=== PATIENT | male | born 1990 | race Hispanic/Latino ===

== ENCOUNTER 2021-04-27 17:43 | Emergency (ER) | payer SELFPAY ==
--- NOTE | 2021-04-27 18:32 | RAD REPORT ---
EXAM DESCRIPTION: RAD - Hand Right 3 View - 04/27/2021 6:22 pm CLINICAL HISTORY: DEFORMITY COMPARISON: No comparisons FINDINGS: Mildly comminuted fracture of the second distal phalangeal tuft. There is less than a mm o f distraction the fragments. IMPRESSION: Second distal phalangeal tuft fracture.
[2021-04-27] MEDS ORDERED: CEFAZOLIN SODIUM 1 GM/VIAL ONE (19:41)
[2021-04-27] MEDS ORDERED: WATER FOR INJ,STERILE 10 ML ONE (19:42)
[2021-04-27] MEDS ORDERED: BUPIVACAINE 0.5% PF 10 ML VIAL ONE (20:14)
--- NOTE | 2021-04-27 21:49 | ER ---
Nurse's Notes [facility] Name: Tobias Rodgers Age: 30 yrs Sex: Male : 1990 Arrival Date: 04/27/2021 Time: 17:46 Bed 9 Private MD: Diagnosis: Finger laceration;Right second tuft fracture open Presentation: 04/27 18:00 Chief complaint: Patient states: picking up a large solid iron block or plate that tw2 weighs about 75 to 100 pounds earlier today. it happened about 2 pm. i was wearing gloves. but its like my finger had a blow out out of the side. Coronavirus screen: At this time, the client does not indicate any symptoms associated with coronavirus-19. Ebola Screen: Patient denies travel to an Ebola-affected area in the 21 days before illness onset. Initial Sepsis Screen: Does the patient meet any 2 criteria? No. Patient's initial sepsis screen is negative. Does the patient have a suspected source of infection? No. Patient's initial sepsis screen is negative. Risk Assessment: Do you want to hurt yourself or someone else? Patient reports no desire to harm self or others. Onset of symptoms was April 27, 2021. 18:00 Method Of Arrival: Ambulatory tw2 18:00 Acuity: GLYNN 3 tw2 18:03 Chief complaint:. tw2 Triage Assessment: 18:05 General: Appears in no apparent distress. uncomfortable, Behavior is calm, cooperative, tw2 appropriate for age. Pain: Complains of pain in palmar aspect of distal phalanx of right index finger. Musculoskeletal: Range of motion: limited in DIP of right index finger. Injury Description: Crush injury sustained to palmar aspect of distal phalanx of right index finger. Historical: - Allergies: 18:04 No Known Allergies; tw2 - Home Meds: 18:04 None [Active]; tw2 - PMHx: 18:04 None; tw2 - PSHx: 18:04 None; tw2 - Immunization history:: Last tetanus immunization: < 5 years ago. - Social history:: Smoking status: Patient denies any tobacco usage or history of. Screenin:25 Abuse screen: Denies threats or abuse. Denies injuries from another. Nutritional ld1 screening: No deficits noted. Tuberculosis screening: No symptoms or risk factors identified. Fall Risk None identified. Assessment: 19:25 General: Appears in no apparent distress. uncomfortable, Behavior is calm, cooperative, ld1 appropriate for age. Pain: Complains of pain in right index fingernail Pain does not radiate. Pain currently is 8 out of 10 on a pain scale. Quality of pain is described as throbbing, Pain began suddenly, Is continuous. Neuro: Level of Consciousness is awake, alert, obeys commands, Oriented to person, place, time, situation, Appropriate for age. Cardiovascular: Capillary refill < 3 seconds Patient's skin is warm and dry. Respiratory: Airway is patent Respiratory effort is even, unlabored, Respiratory pattern is regular, symmetrical. GI: Abdomen is flat, non-distended. : No signs and/or symptoms were reported regarding the genitourinary system. EENT: No signs and/or symptoms were reported regarding the EENT system. Derm: No signs and/or symptoms reported regarding the dermatologic system. Musculoskeletal: No signs and/or symptoms reported regarding the musculoskeletal system. Injury Description: Crush injury sustained to dorsal aspect of distal phalanx of right index finger. 20:34 Reassessment: Patient appears in no apparent distress at this time. Patient is alert, ld1 oriented x 3, equal unlabored respirations, skin warm/dry/pink. Vital Signs: 18:00 BP 126 / 91; Pulse 73; Resp 17; Temp 97.6(TE); Pulse Ox 99% on R/A; Weight 97.52 kg; tw2 Height 6 ft. 0 in. (182.88 cm); Pain 8/10; 19:25 BP 132 / 88; Pulse 76; Resp 18; Pulse Ox 99% on R/A; Pain 8/10; ld1 20:34 BP 129 / 84; Pulse 75; Resp 18; Pulse Ox 100% on R/A; ld1 18:00 Body Mass Index 29.16 (97.52 kg, 182.88 cm) tw2 ED Course: 17:46 Patient arrived in ED. am2 18:03 Triage completed. tw2 18:03 Arm band placed on. tw2 18:22 Hand Right 3 View XRAY In Process Unspecified. EDMS 19:20 Andrey Manzo PA is PHCP. jmm 19:20 Victoriano Hernandes MD is Attending Physician. [facility] 19:21 Attending Physician role handed off by Victoriano Hernandes MD [facility] 19:21 Shabbir Bartholomew MD is Attending Physician. [facility] 19:25 Patient has correct armband on for positive identification. Placed in gown. Bed in low ld1 position. Call light in reach. Side rails up X2. Pulse ox on. NIBP on. Door closed. Noise minimized. Warm blanket given. 19:25 No provider procedures requiring assistance completed. ld1 21:48 Flex Lin MD is Referral Physician. [facility] 21:54 Patient did not have IV access during this emergency room visit. ld1 Administered Medications: 19:25 Drug: Ancef (cefazolin) 1 grams Route: IM; Site: right gluteus; ld1 19:25 Follow up: Response: No adverse reaction ld1 20:04 Drug: Marcaine (bupivacaine) (0.5 %) 10 ml {Note: Administered by THAD Rivera..} ld1 Volume: 10 ml; Route: Infiltration; 20:05 Follow up: Response: No adverse reaction ld1 Outcome: 21:49 Discharge ordered by . [facility] 21:54 Discharged to home ambulatory. ld1 21:54 Condition: stable 21:54 Discharge instructions given to patient, Instructed on discharge instructions, follow up and referral plans. medication usage, Demonstrated understanding of instructions, follow-up care, medications. 21:54 Patient left the ED. ld1 Signatures: Dispatcher [employer] EDMS Shabbir Bartholomew MD MD cha Mickail, Joel, PA PA [facility] Sully Bryant RN RN tw2 Pita Baeza am2 Sumi Tillman, RN RN ld1 Corrections: (The following items were deleted from the chart) 18:04 18:00 Chief complaint: Patient states: picking up a large solid iron block or plate tw2 that weighs about 75 to 100 pounds earlier today. it happened about 2 pm. tw2
--- NOTE | 2021-04-27 21:49 | EDPHYS ---
Physician Documentation [facility] Name: Tobias Rodgers Age: 30 yrs Sex: Male : 1990 Arrival Date: 04/27/2021 Time: 17:46 Bed 9 Private MD: ED Physician Shabbir Bartholomew HPI: 04/27 18:07 This 30 yrs old Male presents to ER via Ambulatory with complaints of Finger jmm Injury. 18:07 The patient or guardian reports injury, pain. Onset: The symptoms/episode jmm began/occurred acutely, just prior to arrival. Modifying factors: The symptoms are alleviated by nothing, the symptoms are aggravated by nothing. Associated signs and symptoms: Pertinent negatives: fever, numbness distally, tingling distally. Patient states that a large metal plate fell on his finger.. Historical: - Allergies: 18:04 No Known Allergies; tw2 - Home Meds: 18:04 None [Active]; tw2 - PMHx: 18:04 None; tw2 - PSHx: 18:04 None; tw2 - Immunization history:: Last tetanus immunization: < 5 years ago. - Social history:: Smoking status: Patient denies any tobacco usage or history of. ROS: 18:07 Constitutional: Negative for fever, chills, and weight loss, Cardiovascular: Negative jmm for chest pain, palpitations, and edema, Respiratory: Negative for shortness of breath, cough, wheezing, and pleuritic chest pain. 18:07 MS/extremity: Positive for injury or acute deformity, pain. 18:07 All other systems are negative. Exam: 18:07 Constitutional: This is a well developed, well nourished patient who is awake, alert, jmm and in no acute distress. Head/Face: atraumatic. Eyes: EOMI, no conjunctival erythema appreciated ENT: Moist Mucus Membranes Neck: Trachea midline, Supple Chest/axilla: Normal chest wall appearance and motion. Cardiovascular: Regular rate and rhythm. No edema appreciated Respiratory: Normal respirations, no respiratory distress appreciated Abdomen/GI: Non distended, soft Back: Normal ROM 18:07 Musculoskeletal/extremity: Full range of motion appreciated to the right DIP, less than 2-second distal capillary refill, neurovascular intact. 18:07 Skin: 2 cm laceration noted to the right index finger. 18:07 Neuro: Orientation: is normal, Mentation: is normal, Memory: is normal. 18:07 Psych: Behavior/mood is pleasant, cooperative. Vital Signs: 18:00 BP 126 / 91; Pulse 73; Resp 17; Temp 97.6(TE); Pulse Ox 99% on R/A; Weight 97.52 kg; tw2 Height 6 ft. 0 in. (182.88 cm); Pain 8/10; 19:25 BP 132 / 88; Pulse 76; Resp 18; Pulse Ox 99% on R/A; Pain 8/10; ld1 20:34 BP 129 / 84; Pulse 75; Resp 18; Pulse Ox 100% on R/A; ld1 18:00 Body Mass Index 29.16 (97.52 kg, 182.88 cm) tw2 Laceration: 21:43 Wound Repair of 2cm ( 0.8in ) subcutaneous laceration to palmar aspect of distal jmm phalanx of right index finger. Distal neuro/vascular/tendon intact. Anesthesia: Local anesthetic administered with 3 mls of 0.5% marcaine. Wound prep: Simple cleansing with betadine by me. Skin closed with 5 5-0 Prolene using simple sutures and sterile technique. Patient tolerated well. MDM: 19:34 Patient medically screened. [facility] 21:43 Data reviewed: vital signs, nurses notes. Counseling: I had a detailed discussion with garret the patient and/or guardian regarding: the historical points, exam findings, and any diagnostic results supporting the discharge/admit diagnosis, radiology results, the need for outpatient follow up, to return to the emergency department if symptoms worsen or persist or if there are any questions or concerns that arise at home. 04/27 18:07 Order name: Hand Right 3 View XRAY; Complete Time: 19:26 iw 04/27 21:29 Order name: Finger Splint; Complete Time: 21:42 [facility] Administered Medications: 19:25 Drug: Ancef (cefazolin) 1 grams Route: IM; Site: right gluteus; ld1 19:25 Follow up: Response: No adverse reaction ld1 20:04 Drug: Marcaine (bupivacaine) (0.5 %) 10 ml {Note: Administered by PA. Miguel.} ld1 Volume: 10 ml; Route: Infiltration; 20:05 Follow up: Response: No adverse reaction ld1 Disposition: 04/28 04:51 Co-signature as Attending Physician, Shabbir Bartholomew MD I agree with the assessment and teo plan of care. Disposition Summary: 04/27/21 21:49 Discharge Ordered Location: Home [facility] Condition: Stable jm Diagnosis - Finger laceration jmm - Right second tuft fracture open jmm Followup: [facility] - With: Flex Lin MD - When: 5 - 6 days - Reason: Recheck today's complaints, Continuance of care, Re-evaluation by your physician Discharge Instructions: - Discharge Summary Sheet jmm - Finger Fracture, Adult jmm - Laceration Care, Adult jm Forms: - Medication Reconciliation Form [facility] - Thank You Letter [facility] - Antibiotic Education [facility] - Prescription Opioid Use [facility] - Work release form bb Prescriptions: - Cephalexin 500 mg Oral Capsule - take 1 capsule by ORAL route every 6 hours for 10 days; 40 capsule; Refills: 0, jmm Product Selection Permitted Signatures: Dispatcher [employer] EDShabbir Matamoros MD MD cha Mickail, Joel, PA PA jmm Williams, Irene, RN RN Sully Cox RN RN tw2 Sumi Tillman RN RN ld1
[2021-04-27 22:01] VITALS: TEMP 97.6
[2021-04-27 22:06] VITALS: BP 129/84; O2SAT 100
== END 2021-04-27 21:54 | disposition home or self-care (01) ==
LOC: ER 17:43
PROC: 2W3JX1Z Immobilization of Right Finger using Splint (ICD-10-PCS; principal; 2021-04-27)
PROC: 0JQJ0ZZ Repair Right Hand Subcutaneous Tissue and Fascia, Open Approach (ICD-10-PCS; 2021-04-27)
DX: S62.632B Displaced fracture of distal phalanx of right middle finger, initial encounter for open fracture (principal); W23.0XXA Caught, crushed, jammed, or pinched between moving objects, initial encounter
CPT/HCPCS: 96372; 99283; J0690

== ENCOUNTER 2021-05-04 01:58 | Emergency (ER) | payer SELFPAY ==
--- NOTE | 2021-05-04 03:15 | EDPHYS ---
Physician Documentation [facility] Name: Tobias Rodgers Age: 30 yrs Sex: Male : 1990 Arrival Date: 05/04/2021 Time: 02:02 Bed 12 Private MD: Shabbir Salinas HPI: 05/04 03:09 This 30 yrs old Male presents to ER via Ambulatory with complaints of Suture teo Removal - Possible. 03:09 The patient has sutures on the palmar aspect of distal phalanx of right index finger teo and right index fingernail. Previous treatment: The patient was initially treated 6 day(s) ago. Sutures/lesly progress: The patient's wound displays redness at site. The patient has not experienced similar symptoms in the past. Historical: - Allergies: 02:22 No Known Allergies; wg - Home Meds: 02:22 None [Active]; wg - PMHx: 02:22 None; wg - Immunization history:: Adult Immunizations up to date. - Social history:: Smoking status: Patient reports the use of cigarette tobacco products, smokes one pack cigarettes per day. Patient uses alcohol, occasionally. Patient/guardian denies using street drugs, IV drugs. - Family history:: not pertinent. ROS: 03:09 Constitutional: Negative for fever, chills, and weight loss, Eyes: Negative for injury, teo pain, redness, and discharge, ENT: Negative for injury, pain, and discharge, Neck: Negative for injury, pain, and swelling, Cardiovascular: Negative for chest pain, palpitations, and edema, Respiratory: Negative for shortness of breath, cough, wheezing, and pleuritic chest pain, Abdomen/GI: Negative for abdominal pain, nausea, vomiting, diarrhea, and constipation, Back: Negative for injury and pain, : Negative for injury, bleeding, discharge, and swelling, Skin: Negative for injury, rash, and discoloration, Neuro: Negative for headache, weakness, numbness, tingling, and seizure, Psych: Negative for depression, anxiety, suicide ideation, homicidal ideation, and hallucinations, Allergy/Immunology: Negative for hives, rash, and allergies, Endocrine: Negative for neck swelling, polydipsia, polyuria, polyphagia, and marked weight changes, Hematologic/Lymphatic: Negative for swollen nodes, abnormal bleeding, and unusual bruising. 03:09 MS/extremity: Positive for laceration, pain, of the palmar aspect of distal phalanx of right index finger and right index fingernail. Exam: 03:09 Constitutional: This is a well developed, well nourished patient who is awake, alert, teo and in no acute distress. Head/Face: Normocephalic, atraumatic. Eyes: Pupils equal round and reactive to light, extra-ocular motions intact. Lids and lashes normal. Conjunctiva and sclera are non-icteric and not injected. Cornea within normal limits. Periorbital areas with no swelling, redness, or edema. ENT: Nares patent. No nasal discharge, no septal abnormalities noted. Tympanic membranes are normal and external auditory canals are clear. Oropharynx with no redness, swelling, or masses, exudates, or evidence of obstruction, uvula midline. Mucous membranes moist. Neck: Trachea midline, no thyromegaly or masses palpated, and no cervical lymphadenopathy. Supple, full range of motion without nuchal rigidity, or vertebral point tenderness. No Meningismus. Chest/axilla: Normal chest wall appearance and motion. Nontender with no deformity. No lesions are appreciated. Cardiovascular: Regular rate and rhythm with a normal S1 and S2. No gallops, murmurs, or rubs. Normal PMI, no JVD. No pulse deficits. Respiratory: Lungs have equal breath sounds bilaterally, clear to auscultation and percussion. No rales, rhonchi or wheezes noted. No increased work of breathing, no retractions or nasal flaring. Abdomen/GI: Soft, non-tender, with normal bowel sounds. No distension or tympany. No guarding or rebound. No evidence of tenderness throughout. Back: No spinal tenderness. No costovertebral tenderness. Full range of motion. Male : Normal genitalia with no discharge or lesions. Skin: Warm, dry with normal turgor. Normal color with no rashes, no lesions, and no evidence of cellulitis. Neuro: Awake and alert, GCS 15, oriented to person, place, time, and situation. Cranial nerves II-XII grossly intact. Motor strength 5/5 in all extremities. Sensory grossly intact. Cerebellar exam normal. Normal gait. Psych: Awake, alert, with orientation to person, place and time. Behavior, mood, and affect are within normal limits. 03:09 Musculoskeletal/extremity: ROM: intact in all extremities, full active range of motion, full passive range of motion, Circulation is intact in all extremities. Sensation intact. Compartment Syndrome exam of affected extremity: is normal. DVT Exam: no swelling, negative Homans' sign noted on exam, no appreciated bluish discoloration, no erythema, no increased warmth, pain, tenderness. Vital Signs: 02:18 BP 125 / 78; Pulse 72; Resp 18; Temp 98.4; Pulse Ox 99% on R/A; Weight 97.52 kg; Height wg 6 ft. (182.88 cm); Pain 0/10; 02:18 Body Mass Index 29.16 (97.52 kg, 182.88 cm) wg Procedures: 03:12 Suture/Staple removal: Removed 6 sutures, from palmar aspect of distal phalanx of right teo index finger and right index fingernail, site appears reddened. MDM: 02:38 Patient medically screened. [facility] 03:12 Data reviewed: vital signs, nurses notes. 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 rate is 72 beats/min, rhythm is regular, Pulse oximetry: on room air is 99 %. Counseling: I had a detailed discussion with the patient and/or guardian regarding: the historical points, exam findings, and any diagnostic results supporting the discharge/admit diagnosis, the need for outpatient follow up, for definitive care, a hand specialist. 05/04 03:09 Order name: Wound dressing; Complete Time: 03:09 teo Administered Medications: 03:09 Drug: Neosporin ([id number]) Ointment 1 application Route: Topical; ch4 Site: affected area; 03:10 Drug: KeFLEX (cephalexin) 500 mg Route: PO; ch4 Disposition Summary: 05/04/21 03:14 Discharge Ordered Location: Home teo Problem: new teo Symptoms: have improved teo Condition: Stable teo Diagnosis - Encounter for removal of sutures teo - Sebaceous cyst teo Followup: teo - With: Private Physician - When: 2 - 3 days - Reason: Recheck today's complaints, Continuance of care, Re-evaluation by your physician Followup: teo - With: Flex Lin MD - When: 2 - 3 days - Reason: Recheck today's complaints, Continuance of care, Re-evaluation by your physician Followup: teo - With: Nato Loyola MD - When: 2 - 3 days - Reason: Recheck today's complaints, Continuance of care, Re-evaluation by your physician Discharge Instructions: - Discharge Summary Sheet teo - Ganglion Cyst teo - Suture Removal, Care After teo - Wound Closure Removal, Care After teo - Epidermal Cyst teo Forms: - Medication Reconciliation Form teo - Thank You Letter teo - Antibiotic Education teo - Prescription Opioid Use [facility] Prescriptions: - Cephalexin 500 mg Oral Capsule - take 1 capsule by ORAL route every 6 hours for 5 days; 20 capsule; Refills: 0, teo Product Selection Permitted Signatures: Shabbir Bartholomew MD MD cha Herman, Christina, RN RN Artemio Alcala RN abbe
--- NOTE | 2021-05-04 03:15 | ER ---
Nurse's Notes [facility] Name: Tobias Rodgers Age: 30 yrs Sex: Male : 1990 Arrival Date: 05/04/2021 Time: 02:02 Bed 12 Private MD: Diagnosis: Encounter for removal of sutures;Sebaceous cyst Presentation: 05/04 02:18 Coronavirus screen: Vaccine status: Patient reports being unvaccinated. At this time, wg the client does not indicate any symptoms associated with coronavirus-19. Ebola Screen: Patient negative for fever greater than or equal to 101.5 degrees Fahrenheit, and additional compatible Ebola Virus Disease symptoms Patient denies exposure to infectious person. Patient denies travel to an Ebola-affected area in the 21 days before illness onset. No symptoms or risks identified at this time. Initial Sepsis Screen: Does the patient meet any 2 criteria? No. Patient's initial sepsis screen is negative. Does the patient have a suspected source of infection? No. Patient's initial sepsis screen is negative. Risk Assessment: Do you want to hurt yourself or someone else? Patient reports no desire to harm self or others. Onset of symptoms was May 01, 2021. 02:18 Method Of Arrival: Ambulatory 02:18 Acuity: GLYNN 5 wg Triage Assessment: 02:22 General: Appears in no apparent distress. comfortable, well groomed, Behavior is calm, wg cooperative, appropriate for age. Pain: Denies pain. EENT: No deficits noted. Neuro: No deficits noted. Cardiovascular: No deficits noted. Respiratory: No deficits noted. GI: No deficits noted. : No deficits noted. Derm: 4 stitches in right index finger. Historical: - Allergies: 02:22 No Known Allergies; wg - Home Meds: 02:22 None [Active]; wg - PMHx: 02:22 None; wg - Immunization history:: Adult Immunizations up to date. - Social history:: Smoking status: Patient reports the use of cigarette tobacco products, smokes one pack cigarettes per day. Patient uses alcohol, occasionally. Patient/guardian denies using street drugs, IV drugs. - Family history:: not pertinent. Screenin:02 Abuse screen: Denies threats or abuse. Nutritional screening: No deficits noted. ch4 Tuberculosis screening: No symptoms or risk factors identified. Fall Risk None identified. Assessment: 03:01 General: Appears in no apparent distress. comfortable. Pain: Denies pain. Neuro: No ch4 deficits noted. Cardiovascular: No deficits noted. Respiratory: No deficits noted. GI: No deficits noted. : No deficits noted. EENT: No deficits noted. Derm: Skin is pink, warm \T\ dry. Skin temperature is warm. Musculoskeletal: No deficits noted. 03:13 Reassessment: No changes from previously documented assessment. Patient is alert, ch4 oriented x 3, equal unlabored respirations, skin warm/dry/pink. Vital Signs: 02:18 BP 125 / 78; Pulse 72; Resp 18; Temp 98.4; Pulse Ox 99% on R/A; Weight 97.52 kg; Height wg 6 ft. (182.88 cm); Pain 0/10; 02:18 Body Mass Index 29.16 (97.52 kg, 182.88 cm) wg ED Course: 02:02 Patient arrived in ED. 02:22 Triage completed. wg 02:22 Arm band placed on left wrist. wg 02:24 Artemio Newton, RN is Primary Nurse. wg 02:38 Shabbir Bartholomew MD is Attending Physician. teo 03:02 Patient has correct armband on for positive identification. ch4 03:02 suture removal. Dressings: Band aid x 1 right hand. Removal of Removed sutures from ch4 right hand Suture site is well healed Patient tolerated well. Wound care: Patient tolerated well. 03:14 Flex Lin MD is Referral Physician. [facility] 03:15 Referral Physician role handed off by Flex Lin MD [facility] 03:15 Nato Loyola MD is Referral Physician. [facility] Administered Medications: 03:09 Drug: Neosporin (hiwzekzw-zuytofynog-cjbzviznz) Ointment 1 application Route: Topical; ch4 Site: affected area; 03:10 Drug: KeFLEX (cephalexin) 500 mg Route: PO; ch4 Outcome: 03:14 Discharge ordered by . [facility] 03:21 Patient left the ED. ch4 Signatures: Shabbir Bartholomew MD MD cha Marsh, Wendy Jacquelin Shin RN RN [facility] Artemio Newton RN Corrections: (The following items were deleted from the chart) 02:42 02:18 Chief complaint: Patient states: Pt was seen here on the and had stitches on ch4 his right index fingertip. Pt states he needs the sutures removed and to see the physician to sign a work form so he can go back to work. wg
[2021-05-04] MEDS ORDERED: LIDOCAINE 1% W/EPI 1:100,000 MDV 50 ML VIAL ONE (03:17)
[2021-05-04] MEDS ORDERED: CEPHALEXIN 250 MG CAP ONE (03:34)
[2021-05-04 03:37] VITALS: BP 125/78; TEMP 98.4; O2SAT 99
== END 2021-05-04 03:21 | disposition home or self-care (01) ==
LOC: ER 01:58
DX: Z48.02 Encounter for removal of sutures (principal); L72.3 Sebaceous cyst; F17.210 Nicotine dependence, cigarettes, uncomplicated
CPT/HCPCS: 99283

== ENCOUNTER 2021-09-29 19:50 | Emergency (ER) | payer SELFPAY ==
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
--- NOTE | 2021-09-29 21:57 | EDPHYS ---
Physician Documentation [facility] Name: Tobias Rodgers Age: 31 yrs Sex: Male : 1990 Arrival Date: 09/29/2021 Time: 19:53 Bed 13 Private MD: ED Physician Elvin Nguyen HPI: 09/29 21:50 This 31 yrs old Male presents to ER via Ambulatory with complaints of mh7 Abdominal Pain. 21:50 The patient presents with abdominal pain in the left upper quadrant. Onset: The mh7 symptoms/episode began/occurred 9 year(s) ago, Steadily increasing over the years. The symptoms radiate to left back. Associated signs and symptoms: Pertinent positives: nausea, Mucous in stool, Pertinent negatives: anorexia, blood in stools, chest pain, constipation, diarrhea, dysuria, fever, headache, hematuria, palpitations, shortness of breath, testicular pain, vomiting, vomiting blood. The symptoms are described as achy, intermittent, waxing/waning. Modifying factors: The symptoms are alleviated by nothing, the symptoms are aggravated by nothing. Severity of pain: At its worst the pain was moderate 14 day(s) ago, in the emergency department the pain has improved markedly. The patient has experienced similar episodes in the past, chronically. Historical: - Allergies: 20:30 No Known Allergies; vc1 - Home Meds: 20:30 None [Active]; vc1 - PMHx: 20:30 None; vc1 - PSHx: 20:30 None; vc1 - Immunization history:: Adult Immunizations up to date, Client reports having NOT received the Covid vaccine. Flu vaccine is not up to date. - Social history:: Smoking status: Patient reports the use of cigarette tobacco products, smokes one pack cigarettes per day. ROS: 21:50 Constitutional: Negative for fever, chills, and weight loss, Eyes: Negative for injury, mh7 pain, redness, and discharge, ENT: Negative for injury, pain, and discharge, Neck: Negative for injury, pain, and swelling, Cardiovascular: Negative for chest pain, palpitations, and edema, Respiratory: Negative for shortness of breath, cough, wheezing, and pleuritic chest pain, : Negative for injury, bleeding, discharge, and swelling, MS/Extremity: Negative for injury and deformity, Skin: Negative for injury, rash, and discoloration, Neuro: Negative for headache, weakness, numbness, tingling, and seizure, Psych: Negative for depression, anxiety, suicide ideation, homicidal ideation, and hallucinations, Allergy/Immunology: Negative for hives, rash, and allergies, Endocrine: Negative for neck swelling, polydipsia, polyuria, polyphagia, and marked weight changes, Hematologic/Lymphatic: Negative for swollen nodes, abnormal bleeding, and unusual bruising. Exam: 21:50 Constitutional: This is a well developed, well nourished patient who is awake, alert, mh7 and in no acute distress. Head/Face: Normocephalic, atraumatic. Eyes: Pupils equal round and reactive to light, extra-ocular motions intact. Lids and lashes normal. Conjunctiva and sclera are non-icteric and not injected. Cornea within normal limits. Periorbital areas with no swelling, redness, or edema. Neck: Trachea midline, no thyromegaly or masses palpated, and no cervical lymphadenopathy. Supple, full range of motion without nuchal rigidity, or vertebral point tenderness. No Meningismus. Chest/axilla: Normal chest wall appearance and motion. Nontender with no deformity. No lesions are appreciated. Cardiovascular: Regular rate and rhythm with a normal S1 and S2. No gallops, murmurs, or rubs. Normal PMI, no JVD. No pulse deficits. Respiratory: Lungs have equal breath sounds bilaterally, clear to auscultation and percussion. No rales, rhonchi or wheezes noted. No increased work of breathing, no retractions or nasal flaring. Abdomen/GI: Soft, non-tender, with normal bowel sounds. No distension or tympany. No guarding or rebound. No evidence of tenderness throughout. Back: No spinal tenderness. No costovertebral tenderness. Full range of motion. Skin: Warm, dry with normal turgor. Normal color with no rashes, no lesions, and no evidence of cellulitis. MS/ Extremity: Pulses equal, no cyanosis. Neurovascular intact. Full, normal range of motion. Neuro: Awake and alert, GCS 15, oriented to person, place, time, and situation. Cranial nerves II-XII grossly intact. Motor strength 5/5 in all extremities. Sensory grossly intact. Cerebellar exam normal. Normal gait. Psych: Awake, alert, with orientation to person, place and time. Behavior, mood, and affect are within normal limits. Vital Signs: 20:30 BP 138 / 85; Pulse 71; Resp 18; Temp 97.1(TE); Pulse Ox 99% ; Weight 97.52 kg; Height 6 vc1 ft. 0 in. (182.88 cm); Pain 5/10; 21:42 BP 141 / 78; Pulse 78; Resp 16; Pulse Ox 98% on R/A; mk 22:00 BP 138 / 81; Pulse 78; Resp 16; Pulse Ox 99% on R/A; mk 20:30 Body Mass Index 29.16 (97.52 kg, 182.88 cm) vc1 Turner Coma Score: 21:42 Eye Response: spontaneous(4). Verbal Response: oriented(5). Motor Response: obeys mk commands(6). Total: 15. MDM: 21:54 Differential diagnosis: gastritis, gastroesophageal reflux disease, Irritable bowel mh7 syndrome, non-specific abd pain, Peptic Ulcer Disease, Ureterolithiasis, urinary tract infection. Data reviewed: vital signs, nurses notes. Data interpreted: Pulse oximetry: on room air is 99 %. Interpretation: normal. Counseling: I had a detailed discussion with the patient and/or guardian regarding: the historical points, exam findings, and any diagnostic results supporting the discharge/admit diagnosis. Refusal of service: The patient/guardian displays adequate decision making capability and despite a detailed discussion of alternatives, benefits, risks, and consequences refuses: CT Scan, all lab tests, all X-rays. 21:57 Patient medically screened. 7 Administered Medications: No medications were administered Disposition Summary: 09/29/21 21:57 Discharge Ordered Location: Home [facility] Problem: chronic mh7 Symptoms: have improved mh7 Condition: Stable mh7 Diagnosis - Upper abdominal pain, unspecified - Chronic mh7 Followup: mh7 - With: Private Physician - When: 1 - 2 days - Reason: Worsening of condition, Recheck today's complaints, Continuance of care, Re-evaluation by your physician Followup: 7 - With: Haile Lao MD - When: 1 - 2 days - Reason: Worsening of condition, Recheck today's complaints Discharge Instructions: - Discharge Summary Sheet mh7 - Abdominal Pain, Adult, [id number] mh7 - Form - Return To Work mh7 Forms: - Medication Reconciliation Form 7 - Work release form bb - Thank You Letter [facility] - Antibiotic Education [facility] - Prescription Opioid Use [facility] Signatures: Elvin Nguyen MD MD [facility] Jody Zarate RN RN vc1
--- NOTE | 2021-09-29 21:57 | ER ---
Nurse's Notes [facility] Name: Tobias Rodgers Age: 31 yrs Sex: Male : 1990 Arrival Date: 09/29/2021 Time: 19:53 Bed 13 Private MD: Diagnosis: Upper abdominal pain, unspecified-Chronic Presentation: 09/29 20:28 Chief complaint: Patient states: I'm having a constant dull pain in my upper left side vc1 of my stomach it sometimes moves to my back and right side. I've had this pain since 2012 but it wasn't this bad. Coronavirus screen: Vaccine status: Patient reports being unvaccinated. Ebola Screen: No symptoms or risks identified at this time. Onset of symptoms is unknown. 20:28 Method Of Arrival: Ambulatory vc1 20:28 Acuity: GLYNN 4 vc1 21:20 Initial Sepsis Screen: Does the patient meet any 2 criteria? No. Patient's initial mk sepsis screen is negative. Does the patient have a suspected source of infection? No. Patient's initial sepsis screen is negative. Risk Assessment: Do you want to hurt yourself or someone else? Patient reports no desire to harm self or others. Triage Assessment: 20:30 General: Appears in no apparent distress. comfortable, Behavior is calm, cooperative, vc1 appropriate for age. Pain: Complains of pain in left upper quadrant Pain radiates to mid back area and right mid back Pain currently is 5 out of 10 on a pain scale. at worst was 8 out of 10 on a pain scale. Quality of pain is described as dull. GI: Reports upper abdominal pain, nausea, Looks like mucus in stool. Historical: - Allergies: 20:30 No Known Allergies; vc1 - Home Meds: 20:30 None [Active]; vc1 - PMHx: 20:30 None; vc1 - PSHx: 20:30 None; vc1 - Immunization history:: Adult Immunizations up to date, Client reports having NOT received the Covid vaccine. Flu vaccine is not up to date. - Social history:: Smoking status: Patient reports the use of cigarette tobacco products, smokes one pack cigarettes per day. Screenin:16 Abuse screen: Denies threats or abuse. Nutritional screening: No deficits noted. bb Tuberculosis screening: No symptoms or risk factors identified. Fall Risk None identified. Assessment: 21:30 General: Appears in no apparent distress. Behavior is cooperative. Pain: Complains of mk pain in abdomen Pain radiates to back Pain currently is 8 out of 10 on a pain scale. Quality of pain is described as burning, Pain began gradually, years ago. Is continuous. 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 Cardiovascular: Heart tones S1 S2 present Capillary refill < 3 seconds in bilateral fingers toes. Respiratory: Airway is patent Trachea midline Respiratory effort is even, unlabored, Respiratory pattern is regular, symmetrical, Breath sounds are clear. GI: Bowel sounds present X 4 quads. Abd is soft X 4 quads Abdomen is tender to palpation X 4 quads. Reports lower abdominal pain, upper abdominal pain. : No signs and/or symptoms were reported regarding the genitourinary system. Derm: Skin is intact, is healthy with good turgor, Skin is dry, Skin temperature is warm. 22:16 Reassessment: Patient is alert, oriented x 3, equal unlabored respirations, skin bb warm/dry/pink. pt seen by this RN at discharge pt verbalized understanding of and agrees to plan of care discharge instructions given pt ambulated with steady gait to exit. Vital Signs: 20:30 BP 138 / 85; Pulse 71; Resp 18; Temp 97.1(TE); Pulse Ox 99% ; Weight 97.52 kg; Height 6 vc1 ft. 0 in. (182.88 cm); Pain 5/10; 21:42 BP 141 / 78; Pulse 78; Resp 16; Pulse Ox 98% on R/A; mk 22:00 BP 138 / 81; Pulse 78; Resp 16; Pulse Ox 99% on R/A; mk 20:30 Body Mass Index 29.16 (97.52 kg, 182.88 cm) vc1 Jason Coma Score: 21:42 Eye Response: spontaneous(4). Verbal Response: oriented(5). Motor Response: obeys mk commands(6). Total: 15. ED Course: 19:53 Patient arrived in ED. kc5 20:30 Triage completed. vc1 20:30 Arm band placed on right wrist. vc1 21:20 Elvin Nguyen MD is Attending Physician. mh7 21:56 Julia Roger, RN is Primary Nurse. 21:56 Haile Lao MD is Referral Physician. [facility] 22:16 Patient has correct armband on for positive identification. bb 22:16 No provider procedures requiring assistance completed. bb 22:17 Patient did not have IV access during this emergency room visit. bb Administered Medications: No medications were administered Outcome: 21:57 Discharge ordered by . [facility] 22:17 Discharged to home ambulatory. bb 22:17 Condition: stable 22:17 Discharge instructions given to patient, Instructed on discharge instructions, follow up and referral plans. Demonstrated understanding of instructions, follow-up care. 22:17 Patient left the ED. bb Signatures: Areli Lebron RN RN Elvin Pepper MD MD [facility] Mariluz Farooq kc5 Julia Roger, Jody Murphy RN, RN RN vc1 Corrections: (The following items were deleted from the chart) 09/30 01:56 09/29 21:30 BP 141 / 78; Pulse 78bpm; Resp 16bpm; Pulse Ox 98% RA; [facility] 09/30 01:56 09/29 21:30 GCS: 15, [facility]
[2021-09-29 23:22] VITALS: BP 138/85; TEMP 97.1; O2SAT 99
== END 2021-09-29 22:17 | disposition home or self-care (01) ==
LOC: ER 19:50
DX: R10.12 Left upper quadrant pain (principal); F17.210 Nicotine dependence, cigarettes, uncomplicated
CPT/HCPCS: 99281

== ENCOUNTER 2021-11-14 21:31 | Emergency (ER) | payer SELFPAY ==
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
[2021-11-14] MEDS ORDERED: CEPHALEXIN 250 MG CAP ONE (22:22)
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
[2021-11-14 23:30] VITALS: TEMP 98.1
[2021-11-14 23:31] VITALS: BP 110/77; O2SAT 100
== END 2021-11-14 22:29 | disposition home or self-care (01) ==
LOC: ER 21:31
DX: S61.210A Laceration without foreign body of right index finger without damage to nail, initial encounter (principal); F17.210 Nicotine dependence, cigarettes, uncomplicated
CPT/HCPCS: 99284

== ENCOUNTER 2022-01-09 15:40 | Emergency (ER) | payer SELFPAY ==
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
[2022-01-09 16:48] LABS: Absolute Lymphocytes (CBC) 2.2 K/uL (0.7-4.9); Hematocrit 44.1 % (39.6-49.0); MPV 7.6 fL (7.6-11.3); RBC Red Blood Cell Count 5.16 M/uL (4.33-5.43)
[2022-01-09 17:03] LABS: Bilirubin Total 0.4 mg/dL (0.2-1.0); Protein, Total 7.7 g/dL (6.4-8.2)
[2022-01-09 17:15] LABS: Urine Blood Trace-lysed (Negative); Urine Glucose Negative (Negative); Urine Protein Trace (Negative); Urine Specific Gravity >=1.030 (1.005-1.030); Urine pH 5.5 (5.0-7.0)
--- NOTE | 2022-01-09 17:40 | RAD REPORT ---
EXAM DESCRIPTION: CT - Abdomen Pelvis W Contrast - 01/09/2022 5:32 pm CLINICAL HISTORY: LUQ abdominal pain COMPARISON: <Comparisons> TECHNIQUE: Biphasic, helical CT imaging of the abdomen and pelvis was performed following 100 ml non -ionic IV contrast. No oral contrast administered. All CT scans are performed using dose optimization technique as appropriate and may include automated exposure control or mA/KV adjustment according to patient size. FINDINGS: No suspicious findings in the lung bases. No cardiomegaly or pericardial effusion. The liver, spleen, and pancreas show no suspicious findings. Gallbladder and biliary tree are also wi thout suspicious finding. Liver attenuation is borderline fatty infiltrated. Symmetric renal function is seen with no hydronephrosis or suspicious renal mass. No pyelonephritis o r acute parenchymal process. No bladder abnormalities. No adrenal abnormalities. No dilated bowel loops or bowel wall thickening. Appendix is normal. Left-sided diverticulosis is pre sent without diverticulitis. No free air, free fluid or inflammatory stranding. No hernia, mass or b ulky lymphadenopathy. No abdominal wall hematoma or mass. No skeletal muscle suspicious finding. No suspicious bony findings. IMPRESSION: Contrast enhanced CT abdomen and pelvis showing no significant or suspicious finding.
[2022-01-09 17:54] LABS: Barbiturates NEGATIVE (NEGATIVE); Benzodiazepines NEGATIVE (NEGATIVE); Cocaine POSITIVE (NEGATIVE); METHAMPHETAM NEGATIVE (NEGATIVE); Methadone NEGATIVE (NEGATIVE); Opiates NEGATIVE (NEGATIVE); Phencyclidine NEGATIVE (NEGATIVE); THC Cannibis POSITIVE (NEGATIVE)
[2022-01-09] MEDS ORDERED: ONDANSETRON 4 MG/2 ML VIAL ONE (18:33)
[2022-01-09] MEDS ORDERED: NA CHLORIDE 0.9% 1,000 ML ONE (18:34)
[2022-01-09] MEDS ORDERED: KETOROLAC 30 MG/ML INJ ONE (18:34)
--- NOTE | 2022-01-09 19:18 | EDPHYS ---
Physician Documentation [facility] Name: Tobias Rodgers Age: 31 yrs Sex: Male : 1990 Arrival Date: 01/09/2022 Time: 15:44 Bed 11 Private MD: ED Physician Hang Michelle HPI: 01/09 16:32 This 31 yrs old Male presents to ER via Ambulatory with complaints of pm1 Abdominal Pain, Sinus Congestion. 16:32 The patient presents with abdominal pain in the left upper quadrant. Onset: The pm1 symptoms/episode began/occurred Many years while he was incarcerated. The symptoms do not radiate. Associated signs and symptoms: none. The symptoms are described as achy. Modifying factors: The symptoms are alleviated by nothing, the symptoms are aggravated by nothing. Severity of pain: in the emergency department the pain is unchanged. The patient has experienced similar episodes in the past, chronically. The patient has not recently seen a physician. Patient also reports sinus congestion for 2 days. Historical: - Allergies: 16:21 No Known Allergies; aa5 - Home Meds: 16:21 None [Active]; aa5 - PMHx: 16:21 None; aa5 - PSHx: 16:21 left knee; aa5 - Immunization history:: Adult Immunizations unknown. - Social history:: Smoking status: Patient reports the use of cigarette tobacco products, smokes one pack cigarettes per day. ROS: 16:32 Constitutional: Negative for fever, chills, and weight loss, Cardiovascular: Negative pm1 for chest pain, palpitations, and edema, Respiratory: Negative for shortness of breath, cough, wheezing, and pleuritic chest pain. 16:32 Back: Negative for injury and pain, MS/Extremity: Negative for injury and deformity, Skin: Negative for injury, rash, and discoloration, Neuro: Negative for headache, weakness, numbness, tingling, and seizure. 16:32 ENT: Positive for sinus congestion, sinus pain. 16:32 Abdomen/GI: Positive for abdominal pain, of the left upper quadrant, Negative for nausea, vomiting, and diarrhea. 16:32 All other systems are negative. Exam: 16:32 Constitutional: This is a well developed, well nourished patient who is awake, alert, pm1 and in no acute distress. Head/Face: Normocephalic, atraumatic. 16:32 Back: No spinal tenderness. No costovertebral tenderness. Full range of motion. Skin: Warm, dry with normal turgor. Normal color with no rashes, no lesions, and no evidence of cellulitis. MS/ Extremity: Pulses equal, no cyanosis. Neurovascular intact. Full, normal range of motion. 16:32 Cardiovascular: Exam negative for acute changes, Rate: normal, Rhythm: regular, Pulses: no pulse deficits are appreciated. 16:32 Respiratory: Exam negative for acute changes, respiratory distress, shortness of breath, Breath sounds: are clear throughout. 16:32 Abdomen/GI: Inspection: abdomen appears normal, Palpation: soft, in all quadrants, mild abdominal tenderness, in the left upper quadrant. 16:32 Neuro: Exam negative for acute changes, Orientation: is normal, Mentation: is normal, Motor: is normal, moves all fours. Vital Signs: 16:21 BP 121 / 79; Pulse 69; Resp 16 S; Temp 98.3(O); Pulse Ox 99% on R/A; Weight 90.72 kg aa5 (R); Height 6 ft. 0 in. (182.88 cm) (R); 16:21 Body Mass Index 27.12 (90.72 kg, 182.88 cm) aa5 MDM: 16:30 Patient medically screened. pm1 19:15 Data reviewed: vital signs. Data interpreted: Pulse oximetry: on room air is 99 %. pm1 Interpretation: normal. Counseling: I had a detailed discussion with the patient and/or guardian regarding: the historical points, exam findings, and any diagnostic results supporting the discharge/admit diagnosis, lab results, radiology results, the need for outpatient follow up, to return to the emergency department if symptoms worsen or persist or if there are any questions or concerns that arise at home. 01/09 16:31 Order name: CBC with Diff; Complete Time: 17:14 pm1 01/09 16:31 Order name: CMP; Complete Time: 17:14 pm1 01/09 16:31 Order name: Lipase; Complete Time: 17:14 pm1 01/09 16:32 Order name: UDS; Complete Time: 19:14 pm1 01/09 16:32 Order name: ETOH Level; Complete Time: 17:14 pm1 05/24 17:15 Order name: Urine Dipstick-Ancillary; Complete Time: 17:18 EDMS 01/09 16:31 Order name: CT Abd/Pelvis - IV Contrast Only; Complete Time: 17:49 pm1 01/09 16:31 Order name: IV Saline Lock; Complete Time: 17:16 pm1 01/09 16:31 Order name: Labs collected and sent; Complete Time: 17:16 pm1 01/09 16:31 Order name: Urine Dipstick-Ancillary (obtain specimen); Complete Time: 17:16 pm1 Administered Medications: 18:34 Drug: Zofran (Ondansetron) 4 mg Route: IVP; Site: right antecubital; ss 19:00 Follow up: Response: No adverse reaction jb4 18:37 Drug: NS 0.9% 1000 ml Route: IV; Rate: 1 bolus; Site: right antecubital; ss 19:30 Follow up: Response: No adverse reaction; IV Status: Completed infusion 4 18:37 Drug: Ketorolac 30 mg Route: IVP; Site: right antecubital; ss 19:00 Follow up: Response: No adverse reaction; Marked relief of symptoms jb4 Disposition: 01/10 08:42 Co-signature as Attending Physician, Hang Michelle MD. rn Disposition Summary: 01/09/22 19:17 Discharge Ordered Location: Home pm1 Problem: new pm1 Symptoms: have improved pm1 Condition: Stable pm1 Diagnosis - Abdominal pain, unspecified pm1 - Cocaine abuse pm1 - Cannabis abuse pm1 Followup: pm1 - With: Emergency Department - When: As needed - Reason: Worsening of condition Followup: pm1 - With: Private Physician - When: 2 - 3 days - Reason: Recheck today's complaints, Continuance of care, Re-evaluation by your physician Discharge Instructions: - Discharge Summary Sheet pm1 - Abdominal Pain, Adult pm1 Forms: - Medication Reconciliation Form pm1 - Thank You Letter pm1 - Antibiotic Education pm1 - Prescription Opioid Use pm1 - Work release form jb4 Prescriptions: - Pepcid 20 mg Oral Tablet - take 1 tablet by ORAL route every 12 hours for 10 days; 20 tablet; Refills: 0, pm1 Product Selection Permitted - dicyclomine 20 mg Oral Tablet - take 1 tablet by ORAL route every 6 hours As needed; 20 tablet; Refills: 0, pm1 Product Selection Permitted Signatures: Dispatcher [employer] Hang Soriano MD MD rn Calderon, Audri, RN RN aa5 Marguerite Hart RN RN ss Hayden Rajput, HOUSE ADMIN HOUSE ADMIN pm1 Travis Kincaid RN jb4
--- NOTE | 2022-01-09 19:18 | ER ---
Nurse's Notes [facility] Name: Tobias Rodgers Age: 31 yrs Sex: Male : 1990 Arrival Date: 01/09/2022 Time: 15:44 Bed 11 Private MD: Diagnosis: Abdominal pain, unspecified;Cocaine abuse;Cannabis abuse Presentation: 01/09 16:21 Ebola Screen: No symptoms or risks identified at this time. Initial Sepsis Screen: Does aa5 the patient meet any 2 criteria? No. Patient's initial sepsis screen is negative. Does the patient have a suspected source of infection? No. Patient's initial sepsis screen is negative. Risk Assessment: Do you want to hurt yourself or someone else? Patient reports no desire to harm self or others. Onset of symptoms was 2021. 16:21 Acuity: GLYNN 3 aa5 16:21 Method Of Arrival: Ambulatory aa5 16:21 Chief complaint: Patient states: nasal and sinus congestion that began yesterday. Pt aa5 also reports cough and sinus pressure. Pt also c/o upper abd pain radiating around to back x 9 years ago. 16:21 Coronavirus screen: congestion, cough unrelated to allergies. aa5 Historical: - Allergies: 16:21 No Known Allergies; aa5 - Home Meds: 16:21 None [Active]; aa5 - PMHx: 16:21 None; aa5 - PSHx: 16:21 left knee; aa5 - Immunization history:: Adult Immunizations unknown. - Social history:: Smoking status: Patient reports the use of cigarette tobacco products, smokes one pack cigarettes per day. Screenin:00 Abuse screen: Denies threats or abuse. Nutritional screening: No deficits noted. jb4 Tuberculosis screening: No symptoms or risk factors identified. Fall Risk None identified. Assessment: 18:00 General: Appears in no apparent distress. uncomfortable, Behavior is calm, cooperative, jb4 appropriate for age. Pain: Complains of pain in abdomen Pain does not radiate. Pain currently is 5 out of 10 on a pain scale. Neuro: Level of Consciousness is awake, alert, obeys commands, Oriented to person, place, time, situation. Cardiovascular: Patient's skin is warm and dry. Respiratory: Airway is patent Respiratory effort is even, unlabored, Respiratory pattern is regular, symmetrical. GI: Abdomen is flat, non-distended. : No signs and/or symptoms were reported regarding the genitourinary system. EENT: No signs and/or symptoms were reported regarding the EENT system. Derm: Skin is intact, Skin is pink, warm \T\ dry. Musculoskeletal: Circulation, motion, and sensation intact. Range of motion: intact in all extremities. 19:45 Reassessment: Patient appears in no apparent distress at this time. Patient and/or jb4 family updated on plan of care and expected duration. Pain level reassessed. Patient is alert, oriented x 3, equal unlabored respirations, skin warm/dry/pink. Vital Signs: 16:21 BP 121 / 79; Pulse 69; Resp 16 S; Temp 98.3(O); Pulse Ox 99% on R/A; Weight 90.72 kg aa5 (R); Height 6 ft. 0 in. (182.88 cm) (R); 16:21 Body Mass Index 27.12 (90.72 kg, 182.88 cm) aa5 ED Course: 15:44 Patient arrived in ED. mr 15:49 Hayden Rajput, CODIE is PHCP. pm1 15:49 Hang Michelle MD is Attending Physician. pm1 16:21 Arm band placed on. aa5 16:23 Triage completed. aa5 17:02 Initial lab(s) drawn, by tx, sent to lab. Urine collected: clean catch specimen, mb7 cloudy. Inserted saline lock: 20 gauge in right antecubital area, using aseptic technique. Blood collected. 17:03 Patient has correct armband on for positive identification. Bed in low position. Call mb7 light in reach. Pulse ox on. NIBP on. 17:16 UDS Sent. 5 17:16 UDS collected and sent to lab. 5 17:34 CT Abd/Pelvis - IV Contrast Only In Process Unspecified. EDMS 18:06 Travis Kincaid, RN is Primary Nurse. jb4 19:46 No provider procedures requiring assistance completed. IV discontinued, intact, jb4 bleeding controlled, No redness/swelling at site. Pressure dressing applied. Administered Medications: 18:34 Drug: Zofran (Ondansetron) 4 mg Route: IVP; Site: right antecubital; ss 19:00 Follow up: Response: No adverse reaction jb4 18:37 Drug: NS 0.9% 1000 ml Route: IV; Rate: 1 bolus; Site: right antecubital; ss 19:30 Follow up: Response: No adverse reaction; IV Status: Completed infusion jb4 18:37 Drug: Ketorolac 30 mg Route: IVP; Site: right antecubital; ss 19:00 Follow up: Response: No adverse reaction; Marked relief of symptoms jb4 Medication: 19:45 VIS not applicable for this client. jb4 Outcome: 19:17 Discharge ordered by . pm1 19:46 Discharged to home ambulatory, with family. jb4 19:46 Condition: stable 19:46 Discharge instructions given to patient, Instructed on discharge instructions, follow up and referral plans. medication usage, Demonstrated understanding of instructions, follow-up care, medications, Prescriptions given X 2. 19:46 Patient left the ED. jb4 Signatures: Dispatcher [employer] EDMalaika Wolf Audri, RN RN aa5 Marguerite Hart RN RN ss Hayden Rajput, ASSISTANT AT SURGERY ASSISTANT AT SURGERY pm1 Travis Kincaid RN RN jb4 Martinez, Maria Malaika Rivero 7 Corrections: (The following items were deleted from the chart) 16:25 16:21 Initial Sepsis Screen: Does the patient meet any 2 criteria? No. Patient's aa5 initial sepsis screen is negative. Does the patient have a suspected source of infection? No. Patient's initial sepsis screen is negative. aa5 16:26 16:21 Chief complaint: Patient states: nasal and sinus congestion that began yesterday. aa5 Pt also reports cough and sinus pressure. Pt also c/o abd pain x 2 years ago. aa5 16:27 16:21 Chief complaint: Patient states: nasal and sinus congestion that began yesterday. aa5 Pt also reports cough and sinus pressure. Pt also c/o abd pain x 9 years ago. aa5 19:46 18:00 No provider procedures requiring assistance completed. jb4 jb4 :46 18:00 IV discontinued, intact, bleeding controlled, No redness/swelling at site. jb4 Pressure dressing applied, jb4
[2022-01-09 19:54] VITALS: BP 121/79; TEMP 98.3; O2SAT 99
== END 2022-01-09 19:46 | disposition home or self-care (01) ==
LOC: ER 15:40
DX: F14.10 Cocaine abuse, uncomplicated (principal); F12.10 Cannabis abuse, uncomplicated; F17.210 Nicotine dependence, cigarettes, uncomplicated
CPT/HCPCS: 36415; 74177; 80053; 80307; 80320; 81003; 83690; 85025; 96361; 96374; 96375; 99284; J2405; J7030; Q9967

== ENCOUNTER 2022-10-12 17:07 | Emergency (ER) | payer SELFPAY ==
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
--- NOTE | 2022-10-12 18:48 | RAD REPORT ---
EXAM DESCRIPTION: RAD - Hand Right 3 View - 10/12/2022 6:14 pm CLINICAL HISTORY: Right hand pain status post injury FINDINGS: Ultram attic change second terminal tuft. No acute fracture or dislocation noted
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
[2022-10-12 20:26] VITALS: BP 133/82; TEMP 98.6; O2SAT 100
== END 2022-10-12 19:05 | disposition home or self-care (01) ==
LOC: ER 17:07
DX: S61.411A Laceration without foreign body of right hand, initial encounter (principal)
CPT/HCPCS: 99282

== ENCOUNTER 2024-08-27 01:29 | Emergency (ER) | payer SELFPAY ==
[2024-08-27] MEDS ORDERED: ACETAMINOPHEN 500 MG TAB ONE (02:14)
[2024-08-27] MEDS ORDERED: LIDOCAINE 1% 20 ML MDV ONE (02:14)
[2024-08-27] MEDS ORDERED: IBUPROFEN 400 MG TAB ONE (02:15)
[2024-08-27] MEDS ORDERED: SMZ./TMP. 800/160 MG TABLET ONE (02:15)
[2024-08-27] MEDS ORDERED: ONDANSETRON 4 MG (ODT) TAB ONE (02:15)
--- NOTE | 2024-08-27 02:49 | ER ---
Nurse's Notes [facility] Name: Tobias Rodgers Age: 33 yrs Sex: Male : 1990 Arrival Date: 08/27/2024 Time: 01:29 Bed 7 Private MD: Diagnosis: Right great toe ingrown toenail, right great toe paronychia medial side of the toe, posterior scalp lipoma Presentation: 08/27 01:44 Chief complaint: Patient states: Think I have an ingrown toenail on right big toe. vc1 Coronavirus screen: Client denies travel out of the [place] in the last 14 days. At this time, the client does not indicate any symptoms associated with coronavirus-19. Ebola Screen: Patient negative for fever greater than or equal to 101.5 degrees Fahrenheit, and additional compatible Ebola Virus Disease symptoms Patient denies exposure to infectious person. Patient denies travel to an Ebola-affected area in the 21 days before illness onset. No symptoms or risks identified at this time. Initial Sepsis Screen: Does the patient meet any 2 criteria? No. Patient's initial sepsis screen is negative. Does the patient have a suspected source of infection? No. Patient's initial sepsis screen is negative. Risk Assessment: Do you want to hurt yourself or someone else? Patient reports no desire to harm self or others. Onset of symptoms was August 25, 2023. Care prior to arrival: None. Activity prior to arrival: None. 01:44 Method Of Arrival: Ambulatory vc1 01:44 Acuity: GLYNN 4 vc1 Triage Assessment: 01:47 General: Appears in no apparent distress. uncomfortable, slender, well groomed, well vc1 developed, well nourished, Behavior is calm, cooperative, appropriate for age. Pain: Complains of pain in Right first toenail Pain does not radiate. Pain currently is 8 out of 10 on a pain scale. Quality of pain is described as sharp, Pain began 2-3 days ago. Also complains of no other associated symptoms. EENT: No deficits noted. No signs and/or symptoms were reported regarding the EENT system. Neuro: Level of Consciousness is awake, alert, obeys commands, Oriented to person, place, time, situation, Appropriate for age. Cardiovascular: Heart tones S1 S2 present Capillary refill < 3 seconds Patient's skin is warm and dry. Respiratory: Airway is patent Respiratory effort is even, unlabored, Respiratory pattern is regular, symmetrical, Breath sounds are clear bilaterally. GI: No deficits noted. No signs and/or symptoms were reported involving the gastrointestinal system. : No deficits noted. No signs and/or symptoms were reported regarding the genitourinary system. Derm: Skin is intact, is healthy with good turgor, Skin is dry, Skin is normal, Skin temperature is warm. Musculoskeletal: Circulation, motion, and sensation intact. Range of motion: intact in all extremities. Historical: - Allergies: 01:45 No Known Allergies; vc1 - Home Meds: 01:45 None [Active]; vc1 - PMHx: 01:45 None; vc1 - PSHx: 01:45 left knee; vc1 - Immunization history:: Client reports having NOT received the Covid vaccine. Flu vaccine is not up to date. - Infectious Disease History:: Denies. - Social history:: Smoking status: Patient reports the use of cigarette tobacco products, 1-2 black and mild, Reported history of juuling and/or vaping. - Family history:: not pertinent. Screenin:46 [facility] ED Fall Risk Assessment (Adult) History of falling in the last 3 months, vc1 including since admission No falls in past 3 months (0 pts) Confusion or Disorientation No (0 pts) Intoxicated or Sedated No (0 pts) Impaired Gait No (0 pts) Mobility Assist Device Used No (0 pt) Altered Elimination No (0 pt) Score/Fall Risk Level 0 - 2 = Low Risk Oriented to surroundings, Maintained a safe environment, Educated pt \T\ family on fall prevention, incl call for assistance when getting out of bed. Abuse screen: Denies threats or abuse. Nutritional screening: No deficits noted. Tuberculosis screening: No symptoms or risk factors identified. Assessment: 01:49 General: see triage assessment. vc1 02:42 Reassessment: Dr. Talley in the room. ha1 Vital Signs: 01:44 BP 138 / 66; Pulse 72; Resp 14; Temp 99; Pulse Ox 98% ; Weight 92.99 kg; Height 6 ft. 0 vc1 in. ; Pain 8/10; 01:44 Body Mass Index 27.80 (92.99 kg, 182.88 cm) vc1 01:44 Pain Scale: Adult vc1 [place] Coma Score: 08/28 00:49 Eye Response: spontaneous(4). Motor Response: obeys commands(6). Verbal Response: sp4 oriented(5). Total: 15. ED Course: 08/27 01:34 Patient arrived in ED. gm2 01:35 Angelito Talley MD is Attending Physician. sp4 01:45 Triage completed. vc1 01:46 Arm band placed on right wrist. vc1 01:46 treated in diagnostic chair. Provided Education on: infection. vc1 02:48 Domonique Alanis MD is Referral Physician. sp4 02:59 No provider procedures requiring assistance completed. Patient did not have IV access ay during this emergency room visit. Administered Medications: 02:20 Drug: Ondansetron PO 4 mg PO once Route: PO; ha1 02:50 Follow up: Response: No adverse reaction; Marked relief of symptoms ha1 02:21 Drug: Trimethoprim-Sulfamethoxazole PO (160 mg-800 mg (DS) 1 tablet PO once Route: PO; ha1 02:50 Follow up: Response: No adverse reaction ha1 02:21 Drug: Ibuprofen PO 800 mg PO once Route: PO; ha1 02:50 Follow up: Response: No adverse reaction; Marked relief of symptoms ha1 02:21 Drug: Acetaminophen PO 1000 mg PO once Route: PO; ha1 02:50 Follow up: Response: No adverse reaction; Marked relief of symptoms ha1 02:30 Drug: Lidocaine Infiltration (1 %) 20 ml 20 ml Infiltration once; to bedside {Note: ha1 ADMINISTERED BY DOCTOR INDIRA .} Volume: 20 ml; Route: Infiltration; 02:50 Follow up: Response: No adverse reaction ha1 Medication: 01:47 VIS not applicable for this client. vc1 Outcome: 02:48 Discharge ordered by . sp4 02:59 Discharged to home ambulatory, ay 02:59 Condition: stable 02:59 Discharge instructions given to patient, Instructed on discharge instructions, follow up and referral plans. Demonstrated understanding of instructions, follow-up care, medications, Prescriptions given X 2, 03:00 Patient left the ED. ay Signatures: Jody Zarate RN RN vc1 Janie Jimenez RN RN 1 Angelito Talley MD MD sp4 Renate Elias gm2 Blanca Floresu, RN RN ay
--- NOTE | 2024-08-27 02:49 | EDPHYS ---
Physician Documentation [facility] Name: Tobias Rodgers Age: 33 yrs Sex: Male : 1990 Arrival Date: 08/27/2024 Time: 01:29 Bed 7 Private MD: ED Physician Angelito Talley HPI: 08/27 01:35 This 33 yrs old Male presents to ER via Unassigned with complaints of Toe Pain.sp4 01:56 Patient presents with 2 days of right great toe pain swelling tenderness and redness. sp4 He suspects ingrown toenail.. 08/28 00:49 Patient presents with right great toe pain. sp4 Historical: - Allergies: 08/27 01:45 No Known Allergies; vc1 - Home Meds: 01:45 None [Active]; vc1 - PMHx: 01:45 None; vc1 - PSHx: 01:45 left knee; vc1 - Immunization history:: Client reports having NOT received the Covid vaccine. Flu vaccine is not up to date. - Infectious Disease History:: Denies. - Social history:: Smoking status: Patient reports the use of cigarette tobacco products, 1-2 black and mild, Reported history of juuling and/or vaping. - Family history:: not pertinent. ROS: 08/28 00:49 Constitutional: Negative for fever, chills, and weight loss, positive for right great sp4 toe pain tenderness redness All other systems are negative, Exam: 00:49 Constitutional: This is a well developed, well nourished patient who is awake, alert, sp4 and in no acute distress. Head/Face: Normocephalic, atraumatic. Eyes: Pupils equal round and reactive to light, extra-ocular motions intact. Lids and lashes normal. Conjunctiva and sclera are not injected. Cornea within normal limits. Periorbital areas with no swelling, redness, or edema. ENT: Nares patent. No nasal discharge, no septal abnormalities noted. Tympanic membranes are normal and external auditory canals are clear. Oropharynx with no redness, swelling, or masses, exudates, or evidence of obstruction, uvula midline. Mucous membranes moist. Neck: Trachea midline, no thyromegaly or masses palpated, and no cervical lymphadenopathy. Supple, full range of motion without nuchal rigidity, or vertebral point tenderness. Chest/axilla: Normal chest wall appearance and motion. Nontender with no deformity. No lesions are appreciated. Cardiovascular: Regular rate and rhythm with a normal S1 and S2. No gallops, murmurs, or rubs. Normal PMI, no JVD. No pulse deficits. Respiratory: Lungs have equal breath sounds bilaterally, clear to auscultation and percussion. No rales, rhonchi or wheezes noted. No increased work of breathing, no retractions or nasal flaring. Abdomen/GI: Soft, with normal bowel sounds. No distension or tympany. No guarding or rebound. No evidence of tenderness throughout. Back: No spinal tenderness. No costovertebral tenderness. Skin: Warm, dry with normal turgor. Normal color with no rashes, no lesions, and no evidence of cellulitis. MS/ Extremity: Pulses equal, no cyanosis. Neurovascular intact. Full, normal range of motion. Right great toe pain redness swelling indicative of ingrown toenail on medial side of the right great toe Neuro: Awake and alert, GCS 15, oriented to person, place, time, and situation. Cranial nerves II-XII grossly intact. Motor strength 5/5 in all extremities. Sensory grossly intact. Vital Signs: 08/27 01:44 BP 138 / 66; Pulse 72; Resp 14; Temp 99; Pulse Ox 98% ; Weight 92.99 kg; Height 6 ft. 0 vc1 in. ; Pain 8/10; 01:44 Body Mass Index 27.80 (92.99 kg, 182.88 cm) vc1 01:44 Pain Scale: Adult vc1 [place] Coma Score: 08/28 00:49 Eye Response: spontaneous(4). Motor Response: obeys commands(6). Verbal Response: sp4 oriented(5). Total: 15. Procedures: 08/27 02:46 I \T\ D: Incision and drainage was performed for an abscess of the right Right first sp4 toenail - Ingrown toe nail righ medial side Prepped with Betadine, alcohol, Anesthetized with 10 ml's 1% Lidocaine. Incised with #11 blade. Drained small amount purulent fluid. Abscess cavity explored. Dressing: sterile 4x4 gauze, Kerlix Wrap the patient tolerated the procedure well, Right medial side great toe nail ingrown part was removed . MDM: 01:46 Medical Screening Exam initiated sp4 08/28 00:49 Differential diagnosis: sprain, foreign body, arthritis, gout, cellulitis. Data sp4 reviewed: vital signs, nurses notes, old medical records. ED course: Patient stable for discharge home after management for ingrown toenail.. 08/27 01:56 Order name: Dressing - Wound; Complete Time: 02:59 sp4 08/27 01:56 Order name: Gloves, Sterile; Complete Time: 02:20 sp4 08/27 01:56 Order name: Setup Suture Tray; Complete Time: 02:20 sp4 Administered Medications: 08/27 02:20 Drug: Ondansetron PO 4 mg PO once Route: PO; ha1 02:50 Follow up: Response: No adverse reaction; Marked relief of symptoms ha1 02:21 Drug: Trimethoprim-Sulfamethoxazole PO (160 mg-800 mg (DS) 1 tablet PO once Route: PO; ha1 02:50 Follow up: Response: No adverse reaction ha1 02:21 Drug: Ibuprofen PO 800 mg PO once Route: PO; ha1 02:50 Follow up: Response: No adverse reaction; Marked relief of symptoms ha1 02:21 Drug: Acetaminophen PO 1000 mg PO once Route: PO; ha1 02:50 Follow up: Response: No adverse reaction; Marked relief of symptoms ha1 02:30 Drug: Lidocaine Infiltration (1 %) 20 ml 20 ml Infiltration once; to bedside {Note: ha1 ADMINISTERED BY DOCTOR INDIRA .} Volume: 20 ml; Route: Infiltration; 02:50 Follow up: Response: No adverse reaction ha1 Disposition Summary: 08/27/24 02:48 Discharge Ordered Notes: Please see Dr. Alanis for evaluation for scalp lipoma removal Location: Home sp4 Problem: new sp4 Symptoms: have improved sp4 Condition: Stable sp4 Diagnosis - Right great toe ingrown toenail, right great toe paronychia medial side of the toe, sp4 posterior scalp lipoma Followup: sp4 - With: Domonique Alanis MD - When: 7 - 10 days - Reason: Recheck today's complaints Discharge Instructions: - Discharge Summary Sheet sp4 - Ingrown Toenail sp4 - Lipoma sp4 Forms: - Patient Portal Instructions sp4 Prescriptions: - Ibuprofen 800 mg Oral Tablet - take 1 tablet ORAL route every 8 hours As needed take with food; 30 tablet; sp4 Refills: 0, Product Selection Permitted - Bactrim DS 800-160 mg Oral Tablet - take 1 tablet ORAL route every 12 hours for 10 days; 20 tablet; Refills: 0, sp4 Product Selection Permitted Signatures: Jody Zarate, RN RN vc1 Janie Jimenez RN RN ha1 Angelito Talley MD MD sp4
[2024-08-27 03:05] VITALS: BP 138/66; TEMP 99; O2SAT 98
== END 2024-08-27 03:00 | disposition home or self-care (01) ==
LOC: ER 01:29
PROC: 0H9MXZZ Drainage of Right Foot Skin, External Approach (ICD-10-PCS; principal; 2024-08-27)
DX: L03.031 Cellulitis of right toe (principal)
CPT/HCPCS: 99283; J2003; Q0162

== ENCOUNTER 2024-11-29 15:06 | Emergency (ER) | payer SELFPAY ==
[2024-11-29] MEDS ORDERED: ALBUTEROL 2.5 MG/3 ML NEB SOL ONE (15:46)
[2024-11-29] MEDS ORDERED: BENZONATATE 100 MG CAP PO ONE (15:46)
[2024-11-29] MEDS ORDERED: IPRATROPIUM BROM 0.5MG/2.5ML ONE (15:46)
[2024-11-29 16:43] LABS: Influenza A Ag Negative; Influenza B Ag Negative; SARS-CoV-2 Antigen Rapid Res Negative (Negative)
--- NOTE | 2024-11-29 17:02 | ER ---
Nurse's Notes [facility] Name: Tobias Rodgers Age: 34 yrs Sex: Male : 1990 Arrival Date: 11/29/2024 Time: 15:06 Bed 17 Private MD: Diagnosis: Cough;Acute pharyngitis, unspecified Presentation: 11/29 15:15 Chief complaint: Patient states: cough, no smell/taste, fever, chills, pressure to aa5 forehead radiating to left ear. Symptoms began 2-3 days ago. 15:15 Coronavirus screen: cough unrelated to allergies, loss of taste or smell. Ebola Screen: aa5 Patient denies travel to an Ebola-affected area in the 21 days before illness onset. Initial Sepsis Screen: Does the patient meet any 2 criteria? No. Patient's initial sepsis screen is negative. Does the patient have a suspected source of infection? No. Patient's initial sepsis screen is negative. Risk Assessment: Do you want to hurt yourself or someone else? Patient reports no desire to harm self or others. Onset of symptoms was November 2024. 15:15 Acuity: GLYNN 4 aa5 15:15 Method Of Arrival: Ambulatory aa5 Historical: - Allergies: 15:22 No Known Allergies; aa5 - PMHx: 15:22 None; aa5 - PSHx: 15:22 Right leg; aa5 - Immunization history:: Adult Immunizations unknown. - Infectious Disease History:: Denies. - Social history:: Smoking status: Patient reports the use of cigarette tobacco products. Screenin:11 [facility] ED Fall Risk Assessment (Adult) History of falling in the last 3 months, cm10 including since admission No falls in past 3 months (0 pts) Confusion or Disorientation No (0 pts) Intoxicated or Sedated No (0 pts) Impaired Gait No (0 pts) Mobility Assist Device Used No (0 pt) Altered Elimination No (0 pt) Score/Fall Risk Level 0 - 2 = Low Risk Oriented to surroundings, Maintained a safe environment, Hourly rounding (assess needs \T\ fall precautionary measures) done. Abuse screen: Denies threats or abuse. Denies injuries from another. Nutritional screening: No deficits noted. Tuberculosis screening: No symptoms or risk factors identified. Assessment: 16:10 General: Appears in no apparent distress. uncomfortable, Behavior is calm, cooperative. cm10 Pain: Denies pain. Neuro: No deficits noted. Level of Consciousness is awake, alert, obeys commands, Oriented to person, place, time, situation, Appropriate for age. Respiratory: Reports cough that is dry, Airway is patent Respiratory effort is even, unlabored, Respiratory pattern is regular, symmetrical, Breath sounds with wheezes bilaterally. 17:28 Reassessment: Patient appears in no apparent distress at this time. Patient and/or cm10 family updated on plan of care and expected duration. Pain level reassessed. Patient is alert, oriented x 3, equal unlabored respirations, skin warm/dry/pink. Vital Signs: 15:15 BP 133 / 88; Pulse 57; Resp 16 S; Temp 98(O); Pulse Ox 99% on R/A; Weight 97.52 kg (R); aa5 Height 6 ft. 0 in. (R); 15:15 Body Mass Index 29.16 (97.52 kg, 182.88 cm) aa5 ED Course: 15:11 Patient arrived in ED. im 15:14 Shabbir Gutiérrez PA is PHCP. cp 15:14 Hang Michelle MD is Attending Physician. cp 15:15 Arm band placed on Patient placed in an exam room, on a stretcher. aa5 15:25 Triage completed. aa5 15:40 Marilyn Crenshaw, RN is Primary Nurse. cm10 16:08 COVID-19 Ag + Flu A+B Ag Sent. cm10 16:08 Group A Streptococcus Rapid Sent. cm10 16:12 Patient has correct armband on for positive identification. Bed in low position. Call cm10 light in reach. 17:28 Provided Education on: follow-up instructions. cm10 17:28 No provider procedures requiring assistance completed. Patient did not have IV access cm10 during this emergency room visit. Administered Medications: 16:08 Drug: Albuterol Inhalation 2.5 mg Inhalation once Route: Inhalation; cm10 16:08 Drug: Ipratropium Inhalation Aerosol 0.5 mg Inhalation once Route: Inhalation; cm10 16:08 Drug: Tessalon Perle PO 200 mg PO once Route: PO; cm10 17:28 Follow up: Response: No adverse reaction cm10 17:04 Drug: Dexamethasone PO 10 mg PO once Route: PO; cm10 17:28 Follow up: Response: No adverse reaction cm10 Medication: 16:11 VIS not applicable for this client. cm10 Outcome: 17:01 Discharge ordered by . lucas 17:28 Discharged to home ambulatory, with family, cm10 17:28 Condition: good 17:28 Discharge instructions given to patient, Instructed on discharge instructions, follow up and referral plans. medication usage, Demonstrated understanding of instructions, follow-up care, medications, Prescriptions given X 2, 17:29 Patient left the ED. cm10 Signatures: Kimberly Vines, RN RN aa5 Shabbir Gutiérrez, PA PA Nadege Lester Clarissa RN RN cm10 Corrections: (The following items were deleted from the chart) 15:23 15:22 PSHx: left knee; meagan rhodes
--- NOTE | 2024-11-29 17:02 | EDPHYS ---
Physician Documentation [facility] Name: Tobias Rodgers Age: 34 yrs Sex: Male : 1990 Arrival Date: 11/29/2024 Time: 15:06 Bed 17 Private MD: ED Physician Hang Michelle HPI: 11/29 15:45 This 34 yrs old Male presents to ER via Ambulatory with complaints of Flu cp Symptoms. 15:45 The patient or guardian reports cough, sinus pressure, headache, congestion. cp 15:45 Onset: The symptoms/episode began/occurred for past 2-3 days. Associated signs and cp symptoms: Pertinent negatives: diarrhea, fever, vomiting. Severity of symptoms: in the emergency department the symptoms are unchanged despite home interventions. Historical: - Allergies: 15:22 No Known Allergies; aa5 - PMHx: 15:22 None; aa5 - PSHx: 15:22 Right leg; aa5 - Immunization history:: Adult Immunizations unknown. - Infectious Disease History:: Denies. - Social history:: Smoking status: Patient reports the use of cigarette tobacco products. ROS: 15:50 Constitutional: history per hpi cp Exam: 15:50 Head/Face: Normocephalic, atraumatic. cp 15:50 Constitutional: The patient appears in no acute distress, alert, awake, non-toxic, well developed, well nourished, 15:50 Eyes: Periorbital structures: appear normal, Conjunctiva: normal, no exudate, no injection, Sclera: no appreciated abnormality, Lids and lashes: appear normal, bilaterally, 15:50 ENT: External ear(s): are unremarkable, Ear canal(s): are normal, clear, TM's: bulging, is not appreciated, bilaterally, dullness, bilaterally, erythema, is not appreciated, bilaterally, Nose: is normal, Mouth: Lips: moist, Oral mucosa: moist, Posterior pharynx: Airway: no evidence of obstruction, patent, Tonsils: no enlargement, no exudate, swelling, is not appreciated, erythema, that is mild, exudate, is not appreciated, 15:50 Neck: ROM/movement: Meningeal signs: are not present, Lymph nodes: no appreciated lymphadenopathy, 15:50 Chest/axilla: Inspection: normal, 15:50 Cardiovascular: Rate: bradycardic, 15:50 Respiratory: the patient does not display signs of respiratory distress, Respirations: normal, no use of accessory muscles, no retractions, labored breathing, is not present, Breath sounds: decreased breath sounds, are not appreciated, stridor, is not appreciated, wheezing: expiratory that is mild, is heard in the right posterior middle lobe and right posterior lower lobe, 15:50 Abdomen/GI: Inspection: abdomen appears normal, Palpation: abdomen is soft and non-tender, in all quadrants, Vital Signs: 15:15 BP 133 / 88; Pulse 57; Resp 16 S; Temp 98(O); Pulse Ox 99% on R/A; Weight 97.52 kg (R); aa5 Height 6 ft. 0 in. (R); 15:15 Body Mass Index 29.16 (97.52 kg, 182.88 cm) aa5 MDM: 15:19 Medical Screening Exam initiated cp 16:00 Differential diagnosis: bronchitis, flu, URI, pneumonia. cp 17:00 Data reviewed: vital signs, nurses notes, lab test result(s), and as a result, I will cp discharge patient. 11/29 15:39 Order name: Group A Streptococcus Rapid 11/29 15:39 Order name: COVID-19 Ag + Flu A+B Ag cp 11/29 16:36 Order name: Throat Culture EDMS Administered Medications: 16:08 Drug: Albuterol Inhalation 2.5 mg Inhalation once Route: Inhalation; cm10 16:08 Drug: Ipratropium Inhalation Aerosol 0.5 mg Inhalation once Route: Inhalation; cm10 16:08 Drug: Tessalon Perle PO 200 mg PO once Route: PO; cm10 17:28 Follow up: Response: No adverse reaction cm10 17:04 Drug: Dexamethasone PO 10 mg PO once Route: PO; cm10 17:28 Follow up: Response: No adverse reaction cm10 Disposition Summary: 11/29/24 17:01 Discharge Ordered Notes: Location: Home cp Problem: new cp Symptoms: have improved cp Condition: Stable cp Diagnosis - Cough cp - Acute pharyngitis, unspecified cp Followup: cp - With: Private Physician - When: 2 - 3 days - Reason: Worsening of condition Discharge Instructions: - Discharge Summary Sheet cp - Pharyngitis cp - Sore Throat cp - Viral Respiratory Infection cp - Cough, Adult cp Forms: - Medication Reconciliation Form cp - Antibiotic Education cp - Prescription Opioid Use cp - Patient Portal Instructions cp - Leadership Thank You Letter cp Prescriptions: - albuterol sulfate 90 mcg/actuation Inhalation HFA Aerosol Inhaler - inhale 1 inhalation INHALATION route every 6 hours as needed for bronchospasm; cp administer via ventilator; 1 unit; Refills: 0, Product Selection Permitted - Tessalon Perles 100 mg Oral capsule - take 2 capsule ORAL route every 8 hours As needed; 30 capsule; Refills: 0, cp Product Selection Permitted Addendum: 11/30/2024 17:32 Co-signature as Attending Physician, Hang Michelle MD I reviewed the patient's care r n provided by the Advanced Practice Provider and agree with the diagnosis and treatment plan. Signatures: Dispatcher [employer] EDHang Seay MD MD rn Calderon, Audri RN RN aa5 Shabbir Gutiérrez PA PA cp Martinez, Clarissa RN RN cm10 Corrections: (The following items were deleted from the chart) 11/29 15:23 15:22 PSHx: left knee; aa5 aa5 11/30 15:38 15:38 Constitutional: history per hpi cp cp
[2024-11-29] MEDS ORDERED: dexAMETHasone 10 MG/ML VIAL ONE (17:03)
[2024-11-29 17:33] VITALS: BP 133/88; TEMP 98; O2SAT 99
== END 2024-11-29 17:29 | disposition home or self-care (01) ==
LOC: ER 15:06
DX: R05.9 Cough, unspecified (principal); J02.9 Acute pharyngitis, unspecified; Z11.52 Encounter for screening for COVID-19
CPT/HCPCS: 36415; 87070; 87428; 99284; J1100; J7613; J7644

== ENCOUNTER 2024-12-03 15:19 | Emergency (ER) | payer SELFPAY ==
--- NOTE | 2024-12-03 16:05 | RAD REPORT ---
EXAMINATION: ONE VIEW CHEST XR CLINICAL INDICATION: COUGH TECHNIQUE: Frontal chest projection is submitted. Examination is limited by patient positioning and t echnique. COMPARISON: No prior exam. FINDINGS: The lungs are well inflated and clear. The heart is upper limit of normal in size. No displaced fract ures identified. IMPRESSION: No acute intrathoracic abnormalities.
--- NOTE | 2024-12-03 16:53 | EDPHYS ---
Physician Documentation [facility] Name: Tobias Rodgers Age: 34 yrs Sex: Male : 1990 Arrival Date: 12/03/2024 Time: 15:19 Bed 11 Private MD: ED Physician Juanita Alexis HPI: 12/03 16:11 This 34 yrs old Male presents to ER via Ambulatory with complaints of Flu sp3 Symptoms. 16:11 34-year-old male with no past medical history presents with sinus pain, pressure and sp3 drainage coupled with cough, congestion and bodyaches. Patient states that symptoms been going for 2 weeks and he is already been seen once before and received a steroid shot which minimally helped. He denies any chest pain, abdominal pain, rash, syncope, nausea, vomiting, diarrhea or any other signs or symptoms on ROS at this time.. Historical: - Allergies: 15:29 No Known Allergies; iw - Home Meds: 15:29 None [Active]; iw - PMHx: 15:29 None; iw - PSHx: 15:29 right leg; iw - Immunization history:: Adult Immunizations not up to date. - Infectious Disease History:: Denies. - Social history:: Smoking status: Patient reports the use of cigarette tobacco products, smokes one pack cigarettes per day. ROS: 16:12 Constitutional: Negative for fever, chills, and weight loss, Eyes: Negative for injury, sp3 pain, redness, and discharge, Neck: Negative for injury, pain, and swelling, Cardiovascular: Negative for chest pain, palpitations, and edema, Abdomen/GI: Negative for abdominal pain, nausea, vomiting, diarrhea, and constipation, Back: Negative for injury and pain, MS/Extremity: Negative for injury and deformity, Skin: Negative for injury, rash, and discoloration, Neuro: Negative for headache, weakness, numbness, tingling, and seizure, Psych: Negative for depression, anxiety, suicide ideation, homicidal ideation, and hallucinations, Allergy/Immunology: Negative for hives, rash, and allergies, Endocrine: Negative for neck swelling, polydipsia, polyuria, polyphagia, and marked weight changes, 16:12 All other systems are negative, Exam: 16:13 Constitutional: This is a well developed, well nourished patient who is awake, alert, sp3 and in no acute distress. Head/Face: Normocephalic, atraumatic. Eyes: Pupils equal round and reactive to light, extra-ocular motions intact. Lids and lashes normal. Conjunctiva and sclera are non-icteric and not injected. Cornea within normal limits. Periorbital areas with no swelling, redness, or edema. Neck: Trachea midline, no thyromegaly or masses palpated, and no cervical lymphadenopathy. Supple, full range of motion without nuchal rigidity, or vertebral point tenderness. No Meningismus. Chest/axilla: Normal chest wall appearance and motion. Nontender with no deformity. No lesions are appreciated. Cardiovascular: Regular rate and rhythm with a normal S1 and S2. No gallops, murmurs, or rubs. Normal PMI, no JVD. No pulse deficits. Abdomen/GI: Soft, non-tender, with normal bowel sounds. No distension or tympany. No guarding or rebound. No evidence of tenderness throughout. Back: No spinal tenderness. No costovertebral tenderness. Full range of motion. Skin: Warm, dry with normal turgor. Normal color with no rashes, no lesions, and no evidence of cellulitis. MS/ Extremity: Pulses equal, no cyanosis. Neurovascular intact. Full, normal range of motion. Neuro: Awake and alert, GCS 15, oriented to person, place, time, and situation. Cranial nerves II-XII grossly intact. Motor strength 5/5 in all extremities. Sensory grossly intact. Cerebellar exam normal. Normal gait. Psych: Awake, alert, with orientation to person, place and time. Behavior, mood, and affect are within normal limits. 16:13 ENT: Patient has pain to percussion over frontal sinuses and nasal discharge. Dry cough noted.. Vital Signs: 15:28 BP 127 / 87; Pulse 79; Resp 19; Temp 97.6; Pulse Ox 99% on R/A; Weight 90.72 kg; Height iw 6 ft. 0 in. ; 15:28 Body Mass Index 27.12 (90.72 kg, 182.88 cm) iw MDM: 15:32 Medical Screening Exam initiated sp3 16:13 Data reviewed: vital signs, nurses notes, lab test result(s), radiologic studies. ED sp3 course: 34-year-old male with upper respiratory and sinusitis type symptoms. Differential diagnosis includes sinusitis, upper respiratory faction, viral illness, COVID-19, influenza, strep pharyngitis, bronchitis, pneumonia, among others. I am not highly suspicious of sepsis, shock, ACS, or any other critical pathology at this time.. 16:53 ED course: X-ray and swabs remain negative. Will give Rocephin IM 1 dose and discharge sp3 patient on Zithromax for sinusitis.. 12/03 15:23 Order name: COVID-19 Ag + Flu A+B Ag sp3 12/03 15:23 Order name: Group A Streptococcus Rapid sp3 12/03 16:58 Order name: Throat Culture EDMS 12/03 15:23 Order name: CXR XRAY; Complete Time: 16:08 sp3 Administered Medications: 17:05 Drug: Rocephin (cefTRIAXone) IM 500 mg IM once Route: IM; Site: right gluteus; aa5 17:40 Follow up: Response: No adverse reaction aa5 Disposition Summary: 12/03/24 16:53 Discharge Ordered Notes: Location: Home sp3 Condition: Stable sp3 Diagnosis - Sinusitis, upper respiratory infection sp3 Followup: sp3 - With: Private Physician - When: Upon discharge from the Emergency Department - Reason: Continuance of care Discharge Instructions: - Discharge Summary Sheet sp3 - Sinusitis, Adult sp3 Forms: - Medication Reconciliation Form sp3 - Antibiotic Education sp3 - Prescription Opioid Use sp3 - Patient Portal Instructions sp3 - Leadership Thank You Letter sp3 Prescriptions: - Zithromax Z-Edmond 250 mg Oral Tablet - take 1 tablet ORAL route as directed for 5 days Day 1 - take two (2) tablets sp3 one time. Day 2, 3, 4 , 5 take one (1) tablet once daily.; 6 tablet; Refills: 0, Product Selection Permitted Signatures: Dispatcher [employer] EDMS Mariely Kinney RN RN iw Kimberly Vines RN RN aa5 Juanita Alexis MD MD sp3 Corrections: (The following items were deleted from the chart) 15:23 15:23 Chest Single View+RAD.RAD.BRZ ordered. EDMS EDMS 15:23 15:23 COVID-19 Ag + Flu A+B Ag+I.LAB.BRZ ordered. EDMS EDMS 15:23 15:23 Group A Streptococcus Rapid Sc+I.LAB.BRZ ordered. EDMS EDMS 15:24 15:24 Facial Bones W/ MPR+CT.RAD.BRZ ordered. EDMS EDMS
--- NOTE | 2024-12-03 16:53 | ER ---
Nurse's Notes [facility] Name: Tobias Rodgers Age: 34 yrs Sex: Male : 1990 Arrival Date: 12/03/2024 Time: 15:19 Bed 11 Private MD: Diagnosis: Sinusitis, upper respiratory infection Presentation: 12/03 15:28 Chief complaint: Patient states: sinus pain, cough, heat flashes, nasal congestion, iw started 3-4 days ago , has been seen here for the same thing but he does not have money to get the meds. Coronavirus screen: At this time, the client does not indicate any symptoms associated with coronavirus-19. Ebola Screen: No symptoms or risks identified at this time. Initial Sepsis Screen: Does the patient meet any 2 criteria? No. Patient's initial sepsis screen is negative. Does the patient have a suspected source of infection? No. Patient's initial sepsis screen is negative. Risk Assessment: Do you want to hurt yourself or someone else?. Onset of symptoms was December 01, 2024. 15:28 Method Of Arrival: Ambulatory iw 15:28 Acuity: GLYNN 4 iw Historical: - Allergies: 15:29 No Known Allergies; iw - Home Meds: 15:29 None [Active]; iw - PMHx: 15:29 None; iw - PSHx: 15:29 right leg; iw - Immunization history:: Adult Immunizations not up to date. - Infectious Disease History:: Denies. - Social history:: Smoking status: Patient reports the use of cigarette tobacco products, smokes one pack cigarettes per day. Assessment: 17:05 Reassessment: Patient is alert, oriented x 3, equal unlabored respirations, skin aa5 warm/dry/pink. 17:40 Reassessment: Patient is alert, oriented x 3, equal unlabored respirations, skin aa5 warm/dry/pink. Vital Signs: 15:28 BP 127 / 87; Pulse 79; Resp 19; Temp 97.6; Pulse Ox 99% on R/A; Weight 90.72 kg; Height iw 6 ft. 0 in. ; 15:28 Body Mass Index 27.12 (90.72 kg, 182.88 cm) iw ED Course: 15:22 Patient arrived in ED. im 15:23 Juanita Alexis MD is Attending Physician. sp3 15:29 Triage completed. iw 15:30 Arm band placed on. iw 15:53 CXR XRAY In Process Unspecified. EDMS 17:05 Patient has correct armband on for positive identification. aa5 17:40 Mariely Kinney, RN is Primary Nurse. iw Administered Medications: 17:05 Drug: Rocephin (cefTRIAXone) IM 500 mg IM once Route: IM; Site: right gluteus; aa5 17:40 Follow up: Response: No adverse reaction aa5 Outcome: 16:53 Discharge ordered by . sp3 17:39 Discharged to home ambulatory, aa5 17:39 Condition: stable 17:39 Discharge instructions given to patient, Instructed on discharge instructions, follow up and referral plans. medication usage, Demonstrated understanding of instructions, follow-up care, medications, Prescriptions given X 1, 17:40 Patient left the ED. iw Signatures: Dispatcher [employer] EDMS Mariely Kinney RN RN iw Kimberly Vines RN RN aa5 Juanita Alexis MD MD sp3 Nadege Briseno im Corrections: (The following items were deleted from the chart) 18:29 17:44 Response: No adverse reaction aa5 aa5
[2024-12-03 16:55] LABS: Influenza A Ag Negative; Influenza B Ag Negative; SARS-CoV-2 Antigen Rapid Res Negative (Negative)
[2024-12-03] MEDS ORDERED: LIDOCAINE 1% MPF 5 ML VIAL ONE (17:01)
[2024-12-03] MEDS ORDERED: CEFTRIAXONE 500 MG/VIAL ONE (17:01)
[2024-12-03 17:45] VITALS: BP 127/87; TEMP 97.6; O2SAT 99
== END 2024-12-03 17:40 | disposition home or self-care (01) ==
LOC: ER 15:19
DX: J06.9 Acute upper respiratory infection, unspecified (principal); J32.9 Chronic sinusitis, unspecified; Z11.52 Encounter for screening for COVID-19
CPT/HCPCS: 36415; 71045; 87070; 87428; J2003

== ENCOUNTER 2025-05-26 16:58 | Emergency (ER) | payer SELFPAY ==
[2025-05-26 17:50] LABS: Influenza A Ag Negative; Influenza B Ag Negative; SARS-CoV-2 Antigen Rapid Res Negative (Negative)
--- NOTE | 2025-05-26 18:05 | EDPHYS ---
Physician Documentation [facility] Name: Tobias Rodgers Age: 34 yrs Sex: Male : 1990 Arrival Date: 05/26/2025 Time: 16:58 Bed DX3 Private MD: ED Physician Kiran Fajardo HPI: 05/26 17:34 This 34 yrs old Male presents to ER via Ambulatory with complaints of Foreign kb Body In Ear - LT, Chest Congestion, Back Pain. 17:34 Patient is a 34-year-old male who presents for foreign body in left ear, cough, kb congestion, sore throat. States a pebble fell into his ear while he was working on a vehicle and since then he has had the cough congestion and sore throat. Denies fever, chills.. Historical: - Allergies: 17:12 No Known Allergies; dd2 - PMHx: 17:12 None; dd2 - PSHx: 17:12 right leg; dd2 - Immunization history:: Adult Immunizations unknown. - Infectious Disease History:: Denies. - Social history:: Smoking status: Patient denies any tobacco usage or history of. ROS: 17:34 Constitutional: As per HPI kb Exam: 17:34 Constitutional: This is a well developed, well nourished patient who is awake, alert, kb and in no acute distress. Head/Face: Normocephalic, atraumatic. ENT: Moist Mucous membranes Cardiovascular: Regular rate Respiratory: Respirations even and unlabored. No increased work of breathing. Talking in full sentences Skin: Warm, dry with normal turgor. Normal color. MS/ Extremity: Pulses equal, no cyanosis. Neurovascular intact. Full, normal range of motion. Neuro: Awake and alert, GCS 15, oriented to person, place, time, and situation. 17:34 ENT: Ear canal(s): are normal, TM's: are normal, Vital Signs: 17:09 BP 122 / 79; Pulse 55; Resp 16; Temp 98.2; Pulse Ox 100% on R/A; Weight 95.25 kg; dd2 Height 6 ft. 0 in. ; Pain 4/10; 17:09 Body Mass Index 28.48 (95.25 kg, 182.88 cm) dd2 17:09 Pain Scale: Adult dd2 MDM: 17:05 Medical Screening Exam initiated kb 18:04 Differential diagnosis: uri, covid, flu, strep, foreign body in ear canal. Data kb reviewed: vital signs, nurses notes. I considered the following discharge prescriptions or medication management in the emergency department I discussed and recommended Over The Counter medications, Antibiotics: At this time antibiotics are not recommended. Counseling: I had a detailed discussion with the patient and/or guardian regarding the historical points, exam findings, and any diagnostic results supporting the discharge/admit diagnosis, lab results, the need for outpatient follow up, a family practitioner, to return to the emergency department if symptoms worsen or persist or if there are any questions or concerns that arise at home. 05/26 17:14 Order name: COVID-19 Ag + Flu A+B Ag; Complete Time: 17:54 kb 05/26 17:14 Order name: Group A Streptococcus Rapid; Complete Time: 17:54 kb 05/26 17:43 Order name: Throat Culture EDMS Administered Medications: No medications were administered Disposition: 19:47 I was immediately available on-site in the Emergency Department for consultation in the ms3 care of the patient. Disposition Summary: 05/26/25 18:05 Discharge Ordered Notes: Location: Home kb Condition: Stable kb Diagnosis - Acute upper respiratory infection, unspecified kb Followup: kb - With: Emergency Department - When: As needed - Reason: Worsening of condition Followup: kb - With: Private Physician - When: 2 - 3 days - Reason: Recheck today's complaints, Continuance of care, Re-evaluation by your physician Discharge Instructions: - Discharge Summary Sheet kb - Upper Respiratory Infection, Adult, [id number] kb Forms: - Medication Reconciliation Form kb - Antibiotic Education kb - Prescription Opioid Use kb - Patient Portal Instructions kb - Leadership Thank You Letter kb Signatures: Dispatcher [employer] EDMS Shereen Lewis, RILEY-C Kiran Lopez DO DO ms3 URBAN VELIZ RN RN dd2 Corrections: (The following items were deleted from the chart) 17:14 17:14 COVID-19 Ag + Flu A+B Ag+I.LAB.BRZ ordered. EDMS EDMS 17:14 17:14 Group A Streptococcus Rapid Sc+I.LAB.BRZ ordered. EDMS EDMS 17:16 17:16 COVID-19 Ag + Flu A+B Ag+I.LAB.BRZ ordered. EDMS EDMS 17:16 17:16 Group A Streptococcus Rapid Sc+I.LAB.BRZ ordered. EDMS EDMS
--- NOTE | 2025-05-26 18:05 | ER ---
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 REPORTS CONGESTION, SORE THROAT, COUGH AND BACK PAIN SINCE. Coronavirus screen: congestion, runny nose, sore throat. Ebola Screen: No symptoms or risks identified at this time. Initial Sepsis Screen: Does the patient meet any 2 criteria? No. Patient's initial sepsis screen is negative. Does the patient have a suspected source of infection? No. Patient's initial sepsis screen is negative. Risk Assessment: Do you want to hurt yourself or someone else? Patient reports no desire to harm self or others. Onset of symptoms was May 23, 2025. 17:09 Method Of Arrival: Ambulatory dd2 17:09 Acuity: GLYNN 4 dd2 Triage Assessment: 17:12 General: Appears in no apparent distress. well nourished, Behavior is calm, dd2 cooperative, appropriate for age. Pain: Complains of pain in back and throat. EENT: Reports nasal congestion nasal discharge pain when swallowing. Respiratory: Reports cough that is non-productive. Musculoskeletal: Circulation, motion, and sensation intact. Range of motion: intact in all extremities. Historical: - Allergies: 17:12 No Known Allergies; dd2 - PMHx: 17:12 None; dd2 - PSHx: 17:12 right leg; dd2 - Immunization history:: Adult Immunizations unknown. - Infectious Disease History:: Denies. - Social history:: Smoking status: Patient denies any tobacco usage or history of. Screenin:13 [facility] ED Fall Risk Assessment (Adult) History of falling in the last 3 months, iw including since admission No falls in past 3 months (0 pts) Confusion or Disorientation No (0 pts) Intoxicated or Sedated No (0 pts) Impaired Gait No (0 pts) Mobility Assist Device Used No (0 pt) Altered Elimination No (0 pt) Score/Fall Risk Level 0 - 2 = Low Risk Oriented to surroundings, Maintained a safe environment. Abuse screen: Denies threats or abuse. Denies injuries from another. Nutritional screening: No deficits noted. Tuberculosis screening: No symptoms or risk factors identified. Assessment: 18:00 General: Appears in no apparent distress. Behavior is calm, cooperative. Pain: iw Complains of pain in throat. Neuro: Level of Consciousness is awake, alert, obeys commands, Oriented to person, place, time, situation, Moves all extremities. Full function. Cardiovascular: Patient's skin is warm and dry. Respiratory: Respiratory effort is even, unlabored, Respiratory pattern is regular. Derm: Skin is intact, is healthy with good turgor. Musculoskeletal: Range of motion: intact in all extremities. Vital Signs: 17:09 BP 122 / 79; Pulse 55; Resp 16; Temp 98.2; Pulse Ox 100% on R/A; Weight 95.25 kg; dd2 Height 6 ft. 0 in. ; Pain 4/10; 17:09 Body Mass Index 28.48 (95.25 kg, 182.88 cm) dd2 17:09 Pain Scale: Adult dd2 ED Course: 17:01 Patient arrived in ED. cj3 17:05 Shereen Lewis FNP-C is PHCP. kb 17:05 Kiran Fajardo DO is Attending Physician. kb 17:12 Triage completed. dd2 17:12 Arm band placed on right wrist. dd2 17:21 Group A Streptococcus Rapid Sent. dd2 17:21 COVID-19 Ag + Flu A+B Ag Sent. dd2 18:00 Patient has correct armband on for positive identification. iw 18:10 Mariely Kinney, RN is Primary Nurse. iw 18:13 No provider procedures requiring assistance completed. Patient did not have IV access iw during this emergency room visit. Administered Medications: No medications were administered Medication: 18:00 VIS not applicable for this client. iw Outcome: 18:05 Discharge ordered by . kb 18:14 Discharged to home ambulatory, iw 18:14 Condition: good 18:14 Discharge instructions given to patient, Instructed on discharge instructions, follow up and referral plans. Demonstrated understanding of instructions, follow-up care, 18:14 Patient left the ED. iw Signatures: Shereen Lewis FNP-C FNP-Mariely Quinn RN RN iw URBAN VELIZ RN RN dd2 Dana Zhang cj3
== END 2025-05-26 18:14 | disposition home or self-care (01) ==
LOC: ER 16:58
DX: J06.9 Acute upper respiratory infection, unspecified (principal); Z11.52 Encounter for screening for COVID-19
CPT/HCPCS: 36415; 87070; 87428; 99283